=== PATIENT | female | born 1975 | race Native Hawaiian/Other Pacific Islander ===

== ENCOUNTER 2016-12-15 13:39 | Outpatient (CLI) | payer OTHER ==
--- NOTE | 2016-12-15 14:30 | Mammography Report ---
BILATERAL DIGITAL DIAGNOSTIC MAMMOGRAM : 12/15/16 13:39:00 CLINICAL: Recalled for a bilateral asymmetries and left calcifications. COMPARISON:10/16/16 screening FINDINGS: Right lateralmedial and spot compression views demonstrate satisfactory effacement of the previously described asymmetry. Spot magnification ML and CC views of the left breast demonstrate a cluster of low-density calcification with a suggestion of layering on the lateral view. No associated mass or architectural distortion. IMPRESSION: Negative right breast. Probably benign left calcifications. BI-RADS CATEGORY: 3 - - Probably Benign RECOMMENDATION: Six month followup left magnification views and routine screening of the right breast. ACR BI-RADS MAMMOGRAPHIC CODES: 0 = Needs additional imaging evaluation; 1 = Negative; 2 = Benign; 3 = Probably benign; 4 = Suspicious; 5 = Malignant; 6 = Known biopsy-proven malignancy COMMENT: 1. Dense breast tissue, i.e., adenosis, fibrocystic changes, etc., may obscure an underlying neoplasm. 2. Approximately 10% of cancers are not detected with mammography. 3. A negative mammography report should not delay biopsy if a clinically suspicious mass is present. COMMENT: Patient follow-up letters are generated via our [employer] application.
== END 2016-12-15 13:40 | disposition home or self-care (01) ==
LOC: SPVWC 13:39
PROVIDERS: ATTEND Internal Medicine
DX: R92.1 Mammographic calcification found on diagnostic imaging of breast (principal); R92.8 Other abnormal and inconclusive findings on diagnostic imaging of breast
CPT/HCPCS: 77066; G0204

== ENCOUNTER 2017-07-08 10:58 | Outpatient (CLI) | payer OTHER ==
--- NOTE | 2017-07-08 11:58 | Mammography Report ---
BILATERAL DIGITAL DIAGNOSTIC MAMMOGRAM with CAD: 07/08/17 10:58:00 CLINICAL: Six month follow-up calcifications. COMPARISON:12/15/16 FINDINGS: Routine views of each breast plus ML and CC magnification views of the right breast were performed. The breasts are very dense which limits the sensitivity of mammography. No mass or architectural distortion. The previously described clustered relatively central calcifications in the left breast are better imaged and have an intermediate suspicion for malignancy. IMPRESSION: Suspicious left calcifications. Negative right breast. BI-RADS CATEGORY: 4-- Suspicious RECOMMENDATION: Left stereotactic breast biopsy. I discussed the findings and the recommendation for needle core biopsy with the patient at the time of the examination. ACR BI-RADS MAMMOGRAPHIC CODES: 0 = Needs additional imaging evaluation; 1 = Negative; 2 = Benign; 3 = Probably benign; 4 = Suspicious; 5 = Malignant; 6 = Known biopsy-proven malignancy COMMENT: 1. Dense breast tissue, i.e., adenosis, fibrocystic changes, etc., may obscure an underlying neoplasm. 2. Approximately 10% of cancers are not detected with mammography. 3. A negative mammography report should not delay biopsy if a clinically suspicious mass is present. COMMENT: Patient follow-up letters are generated by our [employer] application.
== END 2017-07-08 10:59 | disposition home or self-care (01) ==
LOC: SPVWC 10:58
PROVIDERS: ATTEND Internal Medicine
DX: R92.1 Mammographic calcification found on diagnostic imaging of breast (principal)
CPT/HCPCS: 77066; G0204

== ENCOUNTER 2017-07-30 13:51 | Outpatient (CLI) | payer OTHER ==
--- NOTE | 2017-07-30 16:20 | Mammography Report ---
LEFT DIGITAL DIAGNOSTIC MAMMOGRAM : 07/30/17 13:51:00 The patient presented for a stereotactic biopsy for calcifications. Stereotactic images of the left breast calcifications were obtained but the examination was not technically feasible because of inadequate breast thickness. IMPRESSION: Suspicious clustered calcifications which are not suitable for stereotactic breast biopsy. BI-RADS CATEGORY: 4--Suspicious RECOMMENDATION: Surgical excision of calcifications. ACR BI-RADS MAMMOGRAPHIC CODES: 0 = Needs additional imaging evaluation; 1 = Negative; 2 = Benign; 3 = Probably benign; 4 = Suspicious; 5 = Malignant; 6 = Known biopsy-proven malignancy COMMENT: 1. Dense breast tissue, i.e., adenosis, fibrocystic changes, etc., may obscure an underlying neoplasm. 2. Approximately 10% of cancers are not detected with mammography. 3. A negative mammography report should not delay biopsy if a clinically suspicious mass is present. COMMENT: Patient follow-up letters are generated by our [employer] application.
== END 2017-07-30 13:52 | disposition home or self-care (01) ==
LOC: SPVWC 13:51
PROVIDERS: ATTEND Internal Medicine
DX: R92.1 Mammographic calcification found on diagnostic imaging of breast (principal)
CPT/HCPCS: G0206-LT